=== PATIENT | female | born 1985 | race Caucasian/White ===

== ENCOUNTER → 2018-09-01 | Outpatient (CLI) | payer BC | LOC: OD 12:30 | PROVIDERS: ATTEND Physician Assistant | DX: Z08 Encounter for follow-up examination after completed treatment for malignant neoplasm (principal); Z85.828 Personal history of other malignant neoplasm of skin; L70.8 Other acne; L82.0 Inflamed seborrheic keratosis; L53.8 Other specified erythematous conditions; L29.8 Other pruritus; D48.5 Neoplasm of uncertain behavior of skin; D22.62 Melanocytic nevi of left upper limb, including shoulder; D22.61 Melanocytic nevi of right upper limb, including shoulder; D22.71 Melanocytic nevi of right lower limb, including hip; D22.72 Melanocytic nevi of left lower limb, including hip; D18.01 Hemangioma of skin and subcutaneous tissue; Z79.899 Other long term (current) drug therapy | CPT/HCPCS: 36415; 84132 ==

== ENCOUNTER → 2018-10-09 | Outpatient (CLI) | payer BC | LOC: OD 09:17 | PROVIDERS: ATTEND Physician Assistant | DX: Z08 Encounter for follow-up examination after completed treatment for malignant neoplasm (principal); Z85.828 Personal history of other malignant neoplasm of skin; L70.8 Other acne; L82.0 Inflamed seborrheic keratosis; L53.8 Other specified erythematous conditions; L29.8 Other pruritus; D48.5 Neoplasm of uncertain behavior of skin; D22.5 Melanocytic nevi of trunk; D22.62 Melanocytic nevi of left upper limb, including shoulder; D22.61 Melanocytic nevi of right upper limb, including shoulder; D22.71 Melanocytic nevi of right lower limb, including hip; D22.72 Melanocytic nevi of left lower limb, including hip; Z79.899 Other long term (current) drug therapy | CPT/HCPCS: 36415; 84132 ==

== ENCOUNTER → 2018-12-25 | Outpatient (CLI) | payer BC | LOC: DACC 08:42 | PROVIDERS: ATTEND Physician Assistant | DX: L70.8 Other acne (principal); Z79.899 Other long term (current) drug therapy | CPT/HCPCS: 36415; 84132 ==

== ENCOUNTER 2019-01-27 20:02 | Emergency (ER) | payer BC ==
[2019-01-27 20:36] VITALS: BP 130/90
--- NOTE | 2019-01-27 20:54 | RADIOLOGY REPORT (SQ) ---
EXAM DESCRIPTION: XR FOOT 3 OR MORE VIEWS COMPLETED DATE/TME: 01/27/2019 20:07 CLINICAL HISTORY: 33 years, Female, pain COMPARISON: None. NUMBER OF VIEWS: 3 TECHNIQUE: Three views LEFT foot were obtained in AP, lateral and oblique projections. LIMITATIONS: None. FINDINGS: Lucency is identified traversing the medial aspect of the base of the first digit metatarsal concerning for minimally displaced fracture. Irregularity of the Lisfranc joint for which follow-up evaluation with dedicated weightbearing images or MRI may be considered to exclude the possibility of Lisfranc injury. Soft tissue swelling of the forefoot. IMPRESSION: Fracture of the base of the first digit metatarsal and irregularity of the Lisfranc joint as detailed above. copyright 2010 [employer]- All Rights Reserved
[2019-01-27] MEDS ORDERED: HYDROCODONE/ACETAMINOPHEN 5-325 MG (6 TAB/ER DISP) PO PRN (23:08)
[2019-01-27] MEDS ORDERED: IBUPROFEN 800 MG TABLET PO ONE (23:08)
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
== END 2019-01-27 23:54 | disposition home or self-care (01) ==
LOC: ER 20:02
DX: S92.312A Displaced fracture of first metatarsal bone, left foot, initial encounter for closed fracture (principal); V18.3XXA Person boarding or alighting a pedal cycle injured in noncollision transport accident, initial encounter
CPT/HCPCS: 99283

== ENCOUNTER → 2019-02-04 | Outpatient (CLI) | payer BC ==
--- NOTE | 2019-02-04 18:48 | RADIOLOGY REPORT (SQ) ---
EXAM DESCRIPTION: MRI LT LOWER EXTREMITY WITHOUT COMPLETED DATE/TIME: 02/04/2019 4:48 pm REASON FOR STUDY: S92.242A DISP FX OF MEDIAL CUNEIFORM OF LEFT FOOT, INIT FOR CLOS FX S92.242A DISP FX OF MEDIAL CUNEIFORM OF LEFT FOOT, INIT FOR COMPARISON: None. TECHNIQUE: T1-weighted, T2-weighted, and gradient echo noncontrast multiplanar imaging of the left f oot. LIMITATIONS: None. FINDINGS: MARROW SIGNAL: Edema associated with avulsion fracture of the medial base of the 1st metat arsal adjacent to the insertion of the tibialis anterior. No other fracture is identified. JOINT EFFUSION: None. PLANTAR FASCIA: Normal as visualized. TARSOMETATARSAL AND TOE ARTICULATIONS: Intact. INTERMETATARSAL SPACES AND PLANTAR PLATES: Intact. No soft tissue mass to suggest a neuroma. SOFT TISSUES: Subcutaneous edema over the dorsal aspect of the forefoot. OTHER: No other significant finding. IMPRESSION: Nondisplaced fracture base of 1st metatarsal. No evidence of Lisfranc dislocation. TECHNICAL DOCUMENTATION: JOB ID: [id number]- All Rights Reserved Reading location - IP/workstation name: [email or web address]
== END ==
LOC: RAD 15:31
PROVIDERS: ATTEND Specialist/Technologist Athletic Trainer
DX: S92.315A Nondisplaced fracture of first metatarsal bone, left foot, initial encounter for closed fracture (principal); X58.XXXA Exposure to other specified factors, initial encounter

== ENCOUNTER → 2019-06-29 | Outpatient (CLI) | payer BC | LOC: OD 11:14 | PROVIDERS: ATTEND Physician Assistant | DX: L70.8 Other acne (principal); L81.0 Postinflammatory hyperpigmentation; Z79.899 Other long term (current) drug therapy | CPT/HCPCS: 36415; 84132 ==

== ENCOUNTER → 2019-12-30 | Outpatient (CLI) | payer BC | LOC: OD 10:55 | PROVIDERS: ATTEND Physician Assistant | DX: L70.8 Other acne (principal); L81.0 Postinflammatory hyperpigmentation; Z79.899 Other long term (current) drug therapy | CPT/HCPCS: 36415; 84132 ==